=== PATIENT | female | born 1950 | race Caucasian/White ===

== ENCOUNTER → 2023-01-20 09:34 | Outpatient (REF) | payer MEDICARE, SELFPAY ==
--- NOTE | 2023-01-20 09:41 | CA_ITS ---
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 Normal LV systolic function with LVEF of 60 65% with impaired relaxation filling pattern 2. Fibrocalcific aortic valve changes noted with cardiac valvular Dopplers within normal limits 3. [id number] elevation of right ventricular systolic pressure 4. No gross pericardial effusion Findings Left Ventricle Normal left ventricular size, thickness, and systolic function. The visually estimated ejection fraction is between 60-65%. Spectral Doppler is indicative of an impaired relaxation filling pattern. E/E prime ratio is between 8 and 15 consistent with indeterminate filling pressures. Peak GLS is -20.3%, within normal limits. Right Ventricle Normal right ventricular cavity size and systolic function. Atria Both atria are normal in size. There is no evidence of interatrial shunt. Aortic Valve There is mild calcification of the aortic valve. There is no aortic valve stenosis. There is no aortic valve regurgitation. Mitral Valve There is mild anterior and posterior mitral leaflet thickening. There is trace mitral valve regurgitation. There is no mitral valve stenosis. Pulmonic Valve The pulmonic valve is likely normal. There is trace pulmonic valve regurgitation. Tricuspid Valve Normal tricuspid valve structure. There is mild tricuspid valve regurgitation. Normal right atrial pressure. Mild to moderate pulmonary hypertension is present. Great Vessels All visible segments of the aorta are normal in size. The pulmonary artery was not well visualized. Venous The inferior vena cava is normal in size and collapses greater than 50% with inspiration. Pericardium/Pleural There is no evidence of pericardial effusion. Prior Study Comparison Changes noted compared to prior study dated: 07/10/2022. RV systolic pressure is increased Measurements 2D Linear Measurements IVSd: 0.98 0.6-0.9/0.6-1.0 cm LVIDd: 4.01 3.9-5.3/4.2-5.9 cm LVIDd Index: 2.25 2.4-3.2/2.2-3.1 cm/m2 LVIDs: 2.17 2.0-3.6 cm LVPWd: 0.84 0.7-1.1 cm LA Diam: 3.10 2.7-3.8/3.0-4.0 cm LAIDs Index: 1.74 1.5-2.3 cm/m2 LV Mass: 139.76 67-162/88-224 g LV Mass Index: 78.52 43-95/49-115 g/m2 LVOT Diam: 2.00 3.0+(-)1.3 cm 2D Systolic Function EF 4C: 61.60 >55% EF 2C: 61.40 >55% EF BiP: 59.80 >55% Mitral Valve MV Pk E: 0.68 MV PK A: 0.78 MV Decel Time: 226.00 E/A: 0.90 E'Lateral: 6.85 E'Medial: 5.66 E/E' Med: 12.00 E/E' Lat: 9.90 PHT: 66.00 MVA PHT: 3.33 Decel [place]: 3.01 Aortic Valve AoV Pk Tyron: 1.58 AoV Mn Tyron: 1.15 AoV VTI: 0.37 AoV Pk Grad: 10.00 Aov Mn Grad: 6.00 SUNNI Cont.VTI: 1.71 LVOT LVOT Pk Tyron: 0.93 LVOT Mn Tyron: 0.59 LVOT VTI: 0.20 LVOT Pk Grad: 3.00 LVOT Mn Grad: 2.00 LVOT Diam: 2.00 LVOT Area: 3.14 Diastolic Function MV Pk E: 0.68 MV Pk A: 0.78 E/A: 0.90 E'Medial: 5.66 E/E' Med: 12.00 E' Laterial: 6.85 E/E' Lat: 9.90 Right Ventricle TAPSE (mm): 18.90 TVS' Tyron: 10.60 Tricuspid Valve TR Pk Tyron: 3.31 TR Pk Grad: 44.00 RA Press: 3.00 RVSP: 47.00 Great Vessels Aorta Sinus of Valsalva: 3.08 2.0-3.5 cm Ao Asc: 3.00 2.1-3.4 cm Updated in Other Vendor System with Status of Final Eliseo Watson MD electronically signed on 01/21/2023 3:17:02 PM with status of Final
== END ==
LOC: HO.CARD 09:34
PROVIDERS: PCP Physician Assistant; Visit Provider Internal Medicine Pulmonary Disease
DX: I27.20 Pulmonary hypertension, unspecified (principal)
CPT/HCPCS: 93306